=== PATIENT | female | born 1980 | race Hispanic/Latino ===

== ENCOUNTER 2018-12-30 11:23 | Emergency (ER) | payer BC ==
[~2018-12-30] VITALS: Ht 162.6 cm; Wt 99.8 kg
--- OUTSIDE RECORDS SUMMARY | 2018-12-30 11:26 | XMS REPORT ---
[facility] Address Unknown Phone Unavailable Care Team Providers Care Orthopedic Surgeon Name Role Phone Unavailable Unavailable Payers Payer Name Policy Type Policy Number Effective Date Expiration Date Problems This patient has no known problems. Allergies, Adverse Reactions, Alerts Allergy Name Allergy Type Status Severity Reaction(s) Onset Date Inactive Date Treating Clinician Comments No Known Allergies DA Active U 2017-04-14 00:00:00 Medications This patient has no known medications. Results Test Description Test Time Test Comments Text Results Atomic Results Result Comments - CTA CHEST 2018-11-18 21:01:00 Name: MARCO ANTONIO ALBARADO [facility] : 1980 Age/S: 38 / F [address] [facility] Unit #: [id number] Loc: [place] [address] Phys: Jacqueline Calhoun MD Acct: [id number] Dis Date: Status: REG ER PHONE #: [phone] Exam Date: 11/18/2018 205 FAX #: [phone] Reason: cp, elevated ddimer EXAMS: CPT CODE: [id number] CTA CHEST 03775 REASON FOR EXAM: cp, elevated ddimer EXAM ORDER DATE: 11/18/2018 7:57 PM Ordering MLorena: Jacqueline Calhoun MD PROCEDURE: - CTA CHEST FINDINGS: CT images of the chest were obtained with IV contrast using PE protocol. Reconstructed sagittal and coronal images including 3D reconstructions of the chest were provided for interpretation. Dose reduction techniques were applied. Intravenous contrast: 100cc of Omnipaque 370. The heart size is within normal limits.. No evidence of pericardial effusion The thoracic aorta is unremarkable. No evidence of dissection or aneurysmal dilatation. No filling defect seen within the main or lobar pulmonary arteries to suggest pulmonary embolus No evidence of mediastinal or hilar adenopathy The lungs are clear. No evidence of pleural effusion IMPRESSION: Moderate hernia. No acute findings in the chest at 210 Reported and signed by: Chip Morrissey M.D. CC: Jacqueline Calhoun MD Technologist:Sharon Holliday RT(R); AXEL Patel CTDI: DLP: Trnscb Date/Time: 11/18/2018 (2100) PabloL Orig Print D/T: S: 11/18/2018 (2104) PAGE 1 Signed Report D-DIMER 2018-11-18 19:57:00 D-DIMER (test code=DDIMER) 681.00 ng/mLFEU 0-[address] CALHOUN by BEAR 11/18/181956Critical results verified and read back by Nurse? YClinical Cut-off value for D-Dimer is 500 ng/mL FEU. Comment: The [employer] D- Dimer assay is intended for use asan aid in the diagnosis of venous thromboembolism (VTE)[deep vein thrombosis (DVT) or pulmonary embolism (PE)].The measurement of D-Dimer should not be used as an aid inthe diagnosis of VTE, in patient with: -Therapeutic dose anticoagulant therapy for >24 hours - Fibrinolytic therapy within previous 7 days -Trauma or surgery within previous 4 weeks -Disseminated malignancies -Aortic aneurysm -Sepsis, severe infections, pneumonia, severe skin infections -Liver cirrhosis - CBC W/O [id number] 19:40:00* Test Item Value Reference Range Comments WHITE BLOOD CELL (test code=WBC) 7.1 K/mm3 4.5-12.5 RED BLOOD CELL (test code=RBC) 4.63 mill/mm3 3.7-5.2 HEMOGLOBIN (test code=HGB) 13.9 gram/dL 11.5-15.5 HEMATOCRIT (test code=HCT) 42.0 % 36.0-46.0 MEAN CELL VOLUME (test code=MCV) 90.7 fL 80-98 MEAN CELL HGB (test code=MCH) 30.0 picogram 27.0-33.0 MEAN CELL HGB CONCETRATION (test code=MCHC) 33.1 gram/dL 33.0-36.0 RED CELL DISTRIBUTION WIDTH (test code=RDW) 12.4 % 11.6-16.2 PLATELET COUNT (test code=PLT) 249 K/mm3 150-450 MEAN PLATELET VOLUME (test code=MPV) 9.6 fL 6.7-11.0 CBC W/O [id number] 19:36:00* Test Item Value Reference Range Comments WHITE BLOOD CELL (test code=WBC) K/mm3 4.5-12.5 RED BLOOD CELL (test code=RBC) mill/mm3 3.7-5.2 HEMOGLOBIN (test code=HGB) 13.9 gram/dL 11.5-15.5 HEMATOCRIT (test code=HCT) 42.0 % 36.0-46.0 MEAN CELL VOLUME (test code=MCV) fL 80-98 MEAN CELL HGB (test code=MCH) picogram 27.0-33.0 MEAN CELL HGB CONCETRATION (test code=MCHC) gram/dL 33.0-36.0 RED CELL DISTRIBUTION WIDTH (test code=RDW) % 11.6-16.2 PLATELET COUNT (test code=PLT) K/mm3 150-450 MEAN PLATELET VOLUME (test code=MPV) fL 6.7-11.0 - XR CHEST 2 [id number] 19:32:00 FAX: Jacqueline Carrillo [phone] [place]: B St: REG Name: MARCO ANTONIO CORMIER [facility] : [birth year] Age/S: 38/F [address] Unit #: [id number] Loc: [place] [address] Phys: Jacqueline Calhoun MD Acct: [id number] Dis Date: Status: REG ER PHONE #: [phone] Exam Date: 11/18/2018 1906 FAX #: [phone] Reason: CHEST PAIN EXAMS: CPT CODE: [id number] XR CHEST 2 V 28401 REASON FOR EXAM: CHEST PAIN Exam Order Date: 11/18/2018 6:47 PM Ordering Jeannie.Mandy: Hosea Calhoun MD PROCEDURE: - XR CHEST 2 V COMP ARISON: FINDINGS: PA and lateral views of the chest show clear anamaria ngs without evidence of consolidation. No evidence of effusion. The heart size is within normal limits. Pulmonary vasculatures are unremarkable. The osseous structures are grossly intact. IMPRESSION: No act rubén disease. at 1932 Reported and signed by: Chip Morrissey M.D. CC: Jacqueline Calhoun MD Technologist: Donna Champion(Abimael) Trnscrd Date/Time/By: 11/18/2018 (1931) : By: [employer]VTL Orig Print D/T: S: 11/18/2018 (1934) PAGE 1 Signed Report BASIC METABOLIC [id number] 19:25:00* Test Item Value Reference Range Comments SODIUM (test code=NA) 138 mmol/L 136-145 POTASSIUM (test code=K) 3.9 mmol/L 3.5-5.1 CHLORIDE (test code=CL) 107.0 mmol/L 98-107 CARBON DIOXIDE (test code=CO2) 25.0 mmol/L 21-32 ANION GAP (test code=GAP) 9.9 10-20 GLUCOSE (test code=GLU) 90 mg/dL 74-106 BLOOD UREA NITROGEN (test code=BUN) 27 mg/dL 7-18 GLOMERULAR FILTRATION RATE (test code=GFR) > 60 mL/min >=60 Estimated GFR by using Modified MDRD formula.Chronic kidney disease is defined as either kidney damageor GFR <60 mL/min/1.73 m2 for >3 months. CREATININE (test code=CREAT) 1.00 mg/dL 0.55-1.02 Note change in reference range due to change in reagent. BUN/CREATININE RATIO (test code=BUN/CREA) 27.0 10-20 CALCIUM (test code=CA) 9.1 mg/dL 8.5-10.1 HCG SERUM [id number] 19:25:00* Test Item Value Reference Range Comments HCG SERUM QUAL (test code=HCGQL) NEGATIVE NEGATIVE This HCGQL test is NOT applicable for MALE patients.Check with nurse about probable order error.If Tumor Marker Test needed, nurse should order test "HCGTU"(Test #550.09587) [id number] 19:25:00* Test Item Value Reference Range Comments TROPONIN-I (test code=TROPI) <0.015 ng/mL 0-0.045 BASIC METABOLIC [id number] 19:17:00* Test Item Value Reference Range Comments SODIUM (test code=NA) 138 mmol/L 136-145 POTASSIUM (test code=K) 3.9 mmol/L 3.5-5.1 CHLORIDE (test code=CL) 107.0 mmol/L 98-107 CARBON DIOXIDE (test code=CO2) mmol/L 21-32 ANION GAP (test code=GAP) 10-20 GLUCOSE (test code=GLU) mg/dL 74-106 BLOOD UREA NITROGEN (test code=BUN) mg/dL 7-18 GLOMERULAR FILTRATION RATE (test code=GFR) mL/min >=60 CREATININE (test code=CREAT) mg/dL 0.55-1.02 BUN/CREATININE RATIO (test code=BUN/CREA) 10-20 CALCIUM (test code=CA) mg/dL 8.5-10.1 HCG SERUM [id number] 19:17:00* Test Item Value Reference Range Comments HCG SERUM QUAL (test code=HCGQL) NEGATIVE NEGATIVE This HCGQL test is NOT applicable for MALE patients.Check with nurse about probable order error.If Tumor Marker Test needed, nurse should order test "HCGTU"(Test #550.83974) [id number] 19:17:00* Test Item Value Reference Range Comments TROPONIN-I (test code=TROPI) ng/mL 0-0.045 BASIC METABOLIC [id number] 19:16:00* Test Item Value Reference Range Comments SODIUM (test code=NA) 138 mmol/L 136-145 POTASSIUM (test code=K) 3.9 mmol/L 3.5-5.1 CHLORIDE (test code=CL) 107.0 mmol/L 98-107 CARBON DIOXIDE (test code=CO2) mmol/L 21-32 ANION GAP (test code=GAP) 10-20 GLUCOSE (test code=GLU) mg/dL 74-106 BLOOD UREA NITROGEN (test code=BUN) mg/dL 7-18 GLOMERULAR FILTRATION RATE (test code=GFR) mL/min >=60 CREATININE (test code=CREAT) mg/dL 0.55-1.02 BUN/CREATININE RATIO (test code=BUN/CREA) 10-20 CALCIUM (test code=CA) mg/dL 8.5-10.1 HCG SERUM [id number] 19:16:00* Test Item Value Reference Range Comments HCG SERUM QUAL (test code=HCGQL) NEGATIVE [id number] 19:16:00* Test Item Value Reference Range Comments TROPONIN-I (test code=TROPI) ng/mL 0-0.045
[2018-12-30 11:48] LABS: BASOPHILS % 0.6 % (0.0-1.0); EOSINOPHILS # (AUTO) 0.1 (0.0-0.4); EOSINOPHILS % 1.3 % (0.0-6.0); HEMATOCRIT 40.1 % (34.2-44.1); HEMOGLOBIN 13.3 g/dL (12.0-16.0); LYMPHOCYTES % 28.7 % (18.0-39.1); MEAN CORPUSCULAR HEMOGLOBIN 30.4 pg (28-32); MEAN CORPUSCULAR HGB CONC 33.2 g/dL (31-35); MEAN CORPUSCULAR VOLUME 91.8 fL (81-99); MONOCYTES # (AUTO) 0.5 (0.2-0.8); MONOCYTES % 7.3 % (4.4-11.3); NEUTROPHILS # (AUTO) 4.3 (2.1-6.9); NEUTROPHILS % 61.8 % (38.7-80.0); PLATELET COUNT 256 x10e3/uL (140-360); RED BLOOD COUNT 4.37 x10e6/uL (3.6-5.1); RED CELL DISTRIBUTION WIDTH 12.7 % (11.7-14.4)
[2018-12-30 12:05] LABS: ALANINE AMINOTRANSFERASE 21 IU/L (0-55); ALBUMIN 3.6 g/dL (3.5-5.0); ALKALINE PHOSPHATASE 75 IU/L (40-150); ANION GAP 9.9 mmol/L (8-16); BLOOD UREA NITROGEN 17 mg/dL (7-26); BUN/CREATININE RATIO 18 (6-25); CALCIUM 9.1 mg/dL (8.4-10.2); CARBON DIOXIDE 27 mmol/L (22-29); CHLORIDE 105 mmol/L (98-107); CREATININE, SERUM 0.95 mg/dL (0.57-1.11); EST GLOMERULAR FILTRATION RATE > 60 ML/MIN (60-); GLUCOSE 97 mg/dL (74-118); POTASSIUM 3.9 mmol/L (3.5-5.1); SODIUM 138 mmol/L (136-145)
[2018-12-30 12:36] LABS: INR 0.84
[2018-12-30 12:37] LABS: PARTIAL THROMBOPLASTIN TIME 23.9 seconds (23.8-35.5)
== END 2018-12-30 14:19 | disposition home or self-care (01) ==
LOC: ER 11:23
DX: M79.651 Pain in right thigh (principal); S76.211A Strain of adductor muscle, fascia and tendon of right thigh, initial encounter; S76.111A Strain of right quadriceps muscle, fascia and tendon, initial encounter
CPT/HCPCS: 36415; 80053; 85025; 85610; 85730; 93971; 99283